=== PATIENT | female | born 1950 | race Two or more races ===

== ENCOUNTER 2025-05-24 11:46 | Inpatient (IN) | payer MEDICARE, OTHER ==
[~2025-05-24] VITALS: Ht 149.9 cm; Wt 62.6 kg
[2025-05-24 09:00] VITALS: BP 145/65; TEMP 97.3; O2SAT 97
[2025-05-24] MEDS: IV NS 0.9% 1,000 ML BAG IV ONE (12:00)
[2025-05-24] MEDS ORDERED: ACETAMINOPHEN 325 MG/SUPP.RECT RC ONE (12:03)
[2025-05-24 12:06] LABS: PLATELET COUNT (AUTO) 220 K/uL (150-450); RED BLOOD CELL COUNT(AUTO) 3.65 MIL/uL (4.0-5.2); RED CELL DISTRIBUTION WIDTH 15.6 % (11.5-15.0); WHITE BLOOD COUNT (AUTO) 13.7 K/uL (4.3-11.0)
[2025-05-24] MEDS: ACETAMINOPHEN 650 MG/SUPP.RECT RC ONE (12:14)
[2025-05-24] MEDS: CEFEPIME 1 GM in IV D5W 50 ML IV ONE (12:15)
[2025-05-24 12:19] LABS: ASPARTATE AMINOTRANSFERASE 19 U/L (15-37); CALCIUM, SERUM 8.4 mg/dL (8.5-10.1); CREATININE 0.5 mg/dL (0.6-1.3); SODIUM SERUM 140 mmol/L (136-145); TOTAL PROTEIN, SERUM 6.9 g/dL (6.4-8.2); UREA NITROGEN, BLOOD 15 mg/dL (7-18)
[2025-05-24] MEDS ORDERED: DICL100G34 TP (12:28)
[2025-05-24] MEDS ORDERED: TRAZ-252 PO (12:28)
[2025-05-24] MEDS ORDERED: CALC-1276 PO (12:28)
[2025-05-24] MEDS ORDERED: ACET-73 PO (12:28)
[2025-05-24] MEDS ORDERED: FOLI0.4T6 PO (12:28)
[2025-05-24] MEDS ORDERED: METH2.5T14 PO (12:28)
[2025-05-24] MEDS ORDERED: DIVA-76 PO (12:28)
[2025-05-24] MEDS ORDERED: SENN-261 PO (12:28)
[2025-05-24] MEDS ORDERED: ALEN70TA80 PO (12:28)
[2025-05-24] MEDS ORDERED: AMLO-212 PO (12:28)
[2025-05-24] MEDS ORDERED: POLY17PO4 PO (12:28)
[2025-05-24] MEDS ORDERED: OMEP20CA15 PO (12:28)
[2025-05-24] MEDS ORDERED: LEVO25TA9 PO (12:28)
[2025-05-24 12:34] LABS: LACTIC ACID 1.1 mmol/L (0.4-2.0)
[2025-05-24 12:42] LABS: INR 1.01 (0.91-1.10)
[2025-05-24 12:45] LABS: APPEARANCE,URINE SLIGHTLY CLOUDY (CLEAR); BLOOD, URINE 2+ Ery/uL (NEGATIVE); LEUKOCYTE ESTERASE ,URINE 2+ (NEGATIVE); NITRITE, URINE NEGATIVE (NEGATIVE); UGLUCOSE NEGATIVE (NEGATIVE)
[2025-05-24] MEDS: VANCOMYCIN 1 GM in IV D5W 250 ML IV ONE (12:50)
[2025-05-24 12:53] LABS: ADD URINE CULTURE YES; SQUAMOUS EPITHELIAL CELL,UR 0-2 /HPF (None Seen)
[2025-05-24] MEDS ORDERED: ACETAMINOPHEN ES 500 MG TABLET PO PRN (14:00)
[2025-05-24] MEDS: ENOXAPARIN SODIUM 40 MG/0.4 ML DISP.SYRIN SQ SCH (14:00)
[2025-05-24] MEDS ORDERED: ONDANSETRON HCL/PF 4 MG/2 ML VIAL IVP PRN (14:00)
[2025-05-24] MEDS ORDERED: MAGNESIUM HYDROXIDE 30 ML UDC PO PRN (14:00)
[2025-05-24] MEDS ORDERED: TRAZODONE 50 MG TABLET PO PRN (14:00)
[2025-05-24] MEDS ORDERED: MAG HYDROX/AL HYDROX/SIMETH 30 ML UDC PO PRN (14:00)
[2025-05-24] MEDS ORDERED: Z GUARD REMEDY 4 OZ OINT TP PRN (14:00)
[2025-05-24] MEDS ORDERED: IV NS 0.9% 1,000 ML IV PRN (14:00)
[2025-05-24] MEDS ORDERED: ACETAMINOPHEN 325 MG TABLET PO PRN (14:00)
[2025-05-24] MEDS: CEFTRIAXONE 1 G in IV D5W 50 ML IV SCH (15:39)
[2025-05-24] MEDS: IV NS 0.9% 1,000 ML IV PRN (15:40)
[2025-05-24 16:00] VITALS: BP 121/60; TEMP 97.9; O2SAT 97
[2025-05-24] MEDS: POLYETHYLENE GLYCOL 3350 17 GM POWD.PACK PO SCH (16:27)
[2025-05-24] MEDS: CALCIUM CARB 600MG /VIT D 1 EACH TABLET PO SCH (16:27)
[2025-05-24] MEDS: DIVALPROEX SODIUM 250 MG TABLET.DR PO SCH (16:27)
[2025-05-24] MEDS: DICLOFENAC TOPICAL 100 GM TUBE TP SCH (16:27)
[2025-05-24 20:00] VITALS: BP 107/82; TEMP 99; O2SAT 96
[2025-05-24] MEDS: SENNOSIDES 8.6 MG TABLET PO SCH (21:31)
[2025-05-25] MEDS: LEVOTHYROXINE SODIUM 25 MCG TABLET PO SCH (06:35)
[2025-05-25] MEDS: PANTOPRAZOLE 40 MG TABLET.DR PO SCH (06:35)
[2025-05-25] MEDS: ALENDRONATE 70 MG TABLET PO SCH (06:35)
[2025-05-25 07:24] LABS: PLATELET COUNT (AUTO) 182 K/uL (150-450); RED BLOOD CELL COUNT(AUTO) 3.44 MIL/uL (4.0-5.2); RED CELL DISTRIBUTION WIDTH 15.6 % (11.5-15.0); WHITE BLOOD COUNT (AUTO) 16.3 K/uL (4.3-11.0)
[2025-05-25 07:56] LABS: CREATININE 0.6 mg/dL (0.6-1.3); PHOSPHORUS 2.6 mg/dL (2.5-4.9); SODIUM SERUM 147.0 mmol/L (136-145); UREA NITROGEN, BLOOD 13.0 mg/dL (7-18)
[2025-05-25 08:00] VITALS: BP 109/66; TEMP 98.8; O2SAT 96
[2025-05-25 08:23] LABS: CALCIUM, SERUM 8.0 mg/dL (8.5-10.1)
[2025-05-25] MEDS: METHOTREXATE SODIUM (2.5MG) 2.5 MG TABLET PO SCH ×2 (09:00)
[2025-05-25] MEDS: FOLIC ACID 1 MG TABLET PO SCH (09:00)
[2025-05-25] MEDS: AMLODIPINE BESYLATE 5 MG TABLET PO SCH (09:00)
[2025-05-25 16:00] VITALS: BP 109/68; TEMP 98.1; O2SAT 95
[2025-05-25 20:00] VITALS: BP 109/55; TEMP 99; O2SAT 99
[2025-05-26 07:34] LABS: PLATELET COUNT (AUTO) 196 K/uL (150-450); RED BLOOD CELL COUNT(AUTO) 3.17 MIL/uL (4.0-5.2); RED CELL DISTRIBUTION WIDTH 15.2 % (11.5-15.0); WHITE BLOOD COUNT (AUTO) 10.5 K/uL (4.3-11.0)
[2025-05-26 07:42] LABS: CALCIUM, SERUM 8.0 mg/dL (8.5-10.1); CREATININE 0.7 mg/dL (0.6-1.3); UREA NITROGEN, BLOOD 14.0 mg/dL (7-18)
[2025-05-26 07:49] LABS: SODIUM SERUM 146.0 mmol/L (136-145)
[2025-05-26 08:00] VITALS: BP 140/50; TEMP 98.2; O2SAT 99
[2025-05-26] MEDS: POTASSIUM CHLORIDE 20 MEQ POWDER PACKET PO ONE ×2 (09:35→12:27)
[2025-05-26 13:34] LABS: CALCIUM, SERUM 8.4 mg/dL (8.5-10.1); CREATININE 0.7 mg/dL (0.6-1.3); SODIUM SERUM 146.0 mmol/L (136-145); UREA NITROGEN, BLOOD 14.0 mg/dL (7-18)
[2025-05-26 16:00] VITALS: BP 124/57; TEMP 98.2; O2SAT 100
[2025-05-26 20:00] VITALS: BP 136/65; TEMP 98.4; O2SAT 98
[2025-05-26 21:09] VITALS: BP 136/65; TEMP 98.4; O2SAT 98
[2025-05-27 07:21] LABS: PLATELET COUNT (AUTO) 182 K/uL (150-450); RED BLOOD CELL COUNT(AUTO) 2.94 MIL/uL (4.0-5.2); RED CELL DISTRIBUTION WIDTH 15.2 % (11.5-15.0); WHITE BLOOD COUNT (AUTO) 7.3 K/uL (4.3-11.0)
[2025-05-27 08:00] VITALS: BP 114/90; TEMP 99.1; O2SAT 94
[2025-05-27 08:16] LABS: CALCIUM, SERUM 8.1 mg/dL (8.5-10.1); CREATININE 0.6 mg/dL (0.6-1.3); SODIUM SERUM 146.0 mmol/L (136-145); UREA NITROGEN, BLOOD 9.0 mg/dL (7-18)
[2025-05-27] MEDS: BACI/NEOM/POLY B OINT PKT 1 UDPKT PACKET TP SCH (10:38)
[2025-05-27 16:00] VITALS: BP_SYST 101; BP_SYST 114; BP_DIAS 89; BP_DIAS 90; TEMP 98.4; TEMP 99.1; O2SAT 94; O2SAT 98
[2025-05-28] MEDS ORDERED: NEOMY SULF/BACITRAC ZN/POLY 15 GM TUBE TP SCH (09:00)
[2025-06-01] MEDS ORDERED: METHOTREXATE SODIUM (2.5MG) 2.5 MG TABLET PO SCH (09:00)
== END 2025-05-27 18:32 | DRG 871 ==
LOC: ER 11:55 → MED 14:17
PROVIDERS: ADMIT Nurse Practitioner Acute Care; ATTEND Nurse Practitioner Acute Care
DX: A41.9 Sepsis, unspecified organism (principal); G93.41 Metabolic encephalopathy; N39.0 Urinary tract infection, site not specified; F02.83 Dementia in other diseases classified elsewhere, unspecified severity, with mood disturbance; F02.82 Dementia in other diseases classified elsewhere, unspecified severity, with psychotic disturbance; E03.9 Hypothyroidism, unspecified; M06.9 Rheumatoid arthritis, unspecified; G30.9 Alzheimer's disease, unspecified; Z20.822 Contact with and (suspected) exposure to COVID-19; I10 Essential (primary) hypertension; K21.9 Gastro-esophageal reflux disease without esophagitis; M81.0 Age-related osteoporosis without current pathological fracture; E78.5 Hyperlipidemia, unspecified; B96.20 Unspecified Escherichia coli [E. coli] as the cause of diseases classified elsewhere; Z87.891 Personal history of nicotine dependence; F41.9 Anxiety disorder, unspecified; Z79.890 Hormone replacement therapy; Z79.83 Long term (current) use of bisphosphonates; Z79.899 Other long term (current) drug therapy; F39 Unspecified mood [affective] disorder; F29 Unspecified psychosis not due to a substance or known physiological condition; R65.20 Severe sepsis without septic shock
CPT/HCPCS: 36415; 70450-TC; 71045-TC; 71250-TC; 80048-TC; 80076-TC; 81001; 83605-TC; 83735-TC; 84100-TC; 84484-TC; 85025-TC; 85730-TC; 87040-TC; 87081-TC; 87086-TC; 87186-TC; 92526; 92611; 97110-TC; 97116-TC; 97530-TC; A4223; G0378; J0692; J0696; J1650; J3373; J7030; J7060; J8610